=== PATIENT | male | born 1955 | race Caucasian/White ===

== ENCOUNTER 2017-08-18 09:05 | Day surgery (SDC) | payer BC ==
[~2017-08-18 09:05] MED LIST: Lactated Ringers 1,000 ML IV SCH; Sodium Chloride 0.9% 5 ML Syringe FLUSH PRN
[2017-08-18] MEDS ORDERED: Midazolam 1 MG/ML 2 ML SDV ONE (09:25)
[2017-08-18] MEDS ORDERED: fentaNYL 100 MCG/2 ML SDV ONE (09:25)
[2017-08-18] MEDS ORDERED: Propofol 200 MG/20 ML SDV ONE (09:43)
[2017-08-18] MEDS ORDERED: Midazolam 1 MG/ML 2 ML SDV IV ONE (10:25)
[2017-08-18] MEDS ORDERED: fentaNYL 100 MCG/2 ML SDV IV ONE (10:25)
[2017-08-18] MEDS ORDERED: Propofol 200 MG/20 ML SDV IV ONE (10:25)
--- NOTE | 2017-08-18 11:20 | PCM.OPNOTE ---
- General Post-Op/Procedure Note Date of Surgery/Procedure: 08/18/17 Operative Procedure(s): Colonoscopy and polypectomies 3, 1 biopsy Findings: Full colonoscopy was performed. The scope was passed to the ileocecal junction. There are 4 polyps identified one at 45 cm, 25 cm 20 cm and 15 cm. The polyp at 45 cm was large, flat based and covered approximately three-quarter of the lumen of the colon. Full polypectomy was not performed of this polyp. Full polypectomies were performed of the polyps at the 25 cm, 20 cm and 15 cm from the anal margin. Pre Op Diagnosis: Abnormal CT scan showing a possible tumor of the sigmoid colon. Post colonoscopy these findings were confirmed. Large mass was identified at 45 cm occluding approximately 75% of the lumen of the colon. 3 of the polyps were identified and removed. Post-Op Diagnosis: As above. Anesthesia Technique: Moderate Sedation Primary Surgeon: Narendra Field Complications: None Condition: Good Free Text/Narrative:: INFORMED CONSENT: Patient is here today for elective colonoscopy. All aspects of this procedure have been discussed with the patient. All possible complications also, including possibility of perforation, infection, pain, bleeding and unknown complications. In the event of perforation patient may need to have abdominal exploration, colon resection, colostomy and even was discussed. Anesthetic complications were handled by anesthesia department. The patient understands fully well. Patient did not have any further questions for me at the end of my interview. The patient wishes for me to proceed. PREOPERATIVE DIAGNOSIS/INDICATIONS: [Abdominal abdomen CT indicating a possible mass of the sigmoid colon.] POSTOPERATIVE DIAGNOSIS: [] Large mass identified at the junction of the sigmoid and descending colon at 45 cm. 3 other polyps identified at 25 cm 28 cm and 15 cm. INSTRUMENT USED: Olympus videocolonoscope. ASA CLASSIFICATION: [2] ANESTHESIA: Continuous EKG, oximetry and intermittent blood pressure and respiratory monitoring were performed throughout the procedure. IV Versed and Fentanyl were administered. PROCEDURE PERFORMED: Colonoscopy POSITIONS OF PATIENT: Left lateral. RECTUM: One polyp identified at 15 cm and removed using the loop and electrocautery.. SIGMOID COLON: 2 polyps were identified at the 25 and 28 cm. Full polypectomies were performed using loop and electrocautery.. DESCENDING COLON: One polyp was identified at 45 cm at the junction of the descending colon and the sigmoid colon. Only a biopsy was performed as this was a flat-based polyp. May require surgical removal or GI consultation. Multiple photographs were taken to document the position of these polyps. SPLENIC FLEXURE: Normal. TRANSVERSE COLON: Normal. HEPATIC FLEXURE: Normal. ASCENDING COLON: Normal. CECUM: Normal. ILEOCECAL VALVE: Normal. BIOPSY: None. TOLERANCE: Excellent. COMPLICATIONS: None.
== END 2017-08-18 12:20 | disposition home or self-care (01) ==
LOC: KA.SDS 09:05
PROVIDERS: ATTEND Family Medicine
DX: D12.8 Benign neoplasm of rectum (principal); D12.4 Benign neoplasm of descending colon; D12.5 Benign neoplasm of sigmoid colon; F17.200 Nicotine dependence, unspecified, uncomplicated; I73.9 Peripheral vascular disease, unspecified; I65.21 Occlusion and stenosis of right carotid artery
CPT/HCPCS: 45380; 45385; J2250; J2704; J3010; J7120

== ENCOUNTER 2017-10-31 19:22 | Observation (INO) | payer BC ==
[2017-10-31] MEDS ORDERED: Sodium Chloride 0.9% 5 ML Syringe FLUSH PRN ×2 (19:50→21:42)
--- NOTE | 2017-10-31 19:52 | EDM.PDOC ---
ED HPI GENERAL MEDICAL PROBLEM - General Chief Complaint: Cardiovascular Problem Stated Complaint: DIZZY Time Seen by Provider: 10/31/17 19:40 Source of Information: Reports: Patient History Limitations: Reports: No Limitations - History of Present Illness INITIAL COMMENTS - FREE TEXT/NARRATIVE: 62 yo WM presents to ER with complaints of dizziness which began tonight while siting on the couch. Pt states episode lasted for less than 1 minute. Pt denies any chest pain, shortness of breath, nausea/vomiting or recent illness. Pt recently had a cardiac stress test which was abnormal an is awaiting being scheduled for diagnostic cardiac cath. Pt had a colonscopy recently which revealed a large polyp which will require surgical excision after cardiac clearance. Onset: Today Onset Date: 10/31/17 Onset Time: 18:00 Location: Reports: Generalized Severity: Mild Improves with: Reports: None Worsens with: Reports: None Associated Symptoms: Reports: No Other Symptoms - Related Data Allergies Allergy/AdvReac Type Severity Reaction Status Date / Time No Known Drug Allergies Allergy Cannot Verified 10/31/17 19:30 Remember Home Meds: Home Meds Aspirin [Adult Low Dose Aspirin EC] 81 mg PO DAILY 08/13/17 [History] Levothyroxine 25 mcg PO ACBREAKFAST 08/13/17 [History] atorvaSTATin [Lipitor] 20 mg PO BEDTIME 08/13/17 [History] Past Medical History Cardiovascular History: Reports: High Cholesterol, PVD Gastrointestinal History: Reports: Other (See Below) Other Gastrointestinal History: here for colonoscopy due to sigmoid mass Musculoskeletal History: Reports: Fracture Endocrine/Metabolic History: Reports: Hypothyroidism - Infectious Disease History Infectious Disease History: Reports: Chicken Pox, Measles, Mumps Social & Family History - Family History Family Medical History: Noncontributory - Caffeine Use Caffeine Use: Reports: Coffee ED ROS GENERAL - Review of Systems Review Of Systems: See Below Constitutional: Reports: No Symptoms HEENT: Reports: No Symptoms Respiratory: Reports: No Symptoms Cardiovascular: Reports: Lightheadedness Endocrine: Reports: No Symptoms GI/Abdominal: Reports: No Symptoms : Reports: No Symptoms Musculoskeletal: Reports: No Symptoms Skin: Reports: No Symptoms Neurological: Reports: Dizziness Psychiatric: Reports: No Symptoms Hematologic/Lymphatic: Reports: No Symptoms Immunologic: Reports: No Symptoms ED EXAM, DIZZINESS - Physical Exam Exam: See Below Exam Limited By: No Limitations General Appearance: Alert, WD/WN, No Apparent Distress Eye Exam: Bilateral Eye: EOMI, PERRL Nose: Normal Inspection, Normal Mucosa, No Blood Throat/Mouth: Normal Inspection, Normal Lips, Normal Teeth, Normal Gums, Normal Oropharynx, Normal Voice, No Airway Compromise Head Exam: Atraumatic, Normocephalic Neck: Normal Inspection, Supple, Non-Tender, Full Range of Motion Respiratory/Chest: No Respiratory Distress, Lungs Clear, Normal Breath Sounds, No Accessory Muscle Use, Chest Non-Tender Cardiovascular: Normal Peripheral Pulses, Regular Rate, Rhythm, No Edema, No Gallop, No JVD, No Murmur, No Rub GI/Abdominal: Normal Bowel Sounds, Soft, Non-Tender, No Organomegaly, No Distention, No Abnormal Bruit, No Mass Neurological: Alert, Normal Mood/Affect, Normal Dorsiflexion, CN II-XII Intact, Normal Plantar Flexion, Normal Gait, Normal Reflexes, No Motor/Sensory Deficits , Oriented x 3 Back Exam: Normal Inspection, Full Range of Motion, NT Extremities: Normal Inspection, Normal Range of Motion, Non-Tender, No Pedal Edema, Normal Capillary Refill Psychiatric: Normal Affect, Normal Mood Skin Exam: Warm, Dry, Intact, Normal Color, No Rash EKG INTERPRETATION EKG Date: 10/31/17 Time: 19:57 Rhythm: NSR Rate (Beats/Min): 73 [place]: Normal P-Wave: Present QRS: Normal ST-T: Normal QT: Normal Comparison: NA - No Prior EKG Course - Orders/Labs/Meds Orders: Active Orders 24 hr Category Date Time Status Cardiac Monitoring [RC] . DIRECTED Care 10/31/17 19:50 Active EKG Documentation Completion [RC] ASDIRECTED Care 10/31/17 19:51 Active Oxygen Therapy, ED [RC] ASDIRECTED Care 10/31/17 19:50 Active Peripheral IV Care [RC] . DIRECTED Care 10/31/17 19:51 Active Chest 1V Frontal [CR] Stat Exams 10/31/17 19:50 Ordered Sodium Chloride 0.9% [Syrex Flush] Med 10/31/17 19:50 Active 5 ml FLUSH Q8HR PRN Peripheral IV Insertion Adult [OM.PC] Routine Oth 10/31/17 19:50 Ordered EKG 12 Lead [EK] Routine Ther 10/31/17 19:50 Ordered Medication Orders Sodium Chloride (Syrex Flush) 5 ml FLUSH Q8HR PRN PRN Reason: Keep Vein Open Labs: Laboratory Tests 10/31/17 10/31/17 10/31/17 Range/Units 20:35 20:35 20:35 WBC 6.5 (5.0-10.0) 10^3/uL RBC 4.48 L (4.50-6.00) 10^6/uL Hgb 15.0 (13.0-17.0) g/dL Hct 43.5 (40.0-52.0) % MCV 97.2 H (82.0-92.0) fL MCH 33.5 H (27.0-31.0) pg MCHC 34.5 (32.0-36.0) g/dL RDW 12.5 (11.5-14.5) % Plt Count 298 (150-300) 10^3/uL MPV 7.0 L (7.4-10.4) fL Neut % (Auto) 55.2 (50.0-70.0) % Lymph % (Auto) 35.4 (20.0-40.0) % [place] % (Auto) 7.0 (2.0-8.0) % Eos % (Auto) 1.6 (1.0-3.0) % Baso % (Auto) 0.8 (0.0-1.0) % Neut # (Auto) 3.5 (2.5-7.0) 10^3/uL Lymph # (Auto) 2.3 (1.0-4.0) 10^3/uL [place] # (Auto) 0.5 (0.1-0.8) 10^3/uL Eos # (Auto) 0.1 (0.1-0.3) 10^3/uL Baso # (Auto) 0.1 (0.0-0.1) 10^3/uL PT 10.1 (8.9-11.4) SEC INR 1.0 (0.9-1.1) APTT 24.8 (20.8-31.2) SEC Sodium 141 (136-145) mmol/L Potassium 4.5 (3.3-5.3) mmol/L Chloride 104 (98-115) mmol/L Carbon Dioxide 29.6 (21.0-32.0) mmol/L Anion Gap 11.9 (5-15) mmol/L BUN 16 (6-25) mg/dL Creatinine 1.10 (0.51-1.17) mg/dL Est Cr Clr Drug Dosing 62.83 mL/min Estimated GFR (MDRD) > 60 mL/min Glucose 98 mg/dL Calcium 9.0 (8.7-10.3) mg/dL Magnesium (1.8-2.4) mg/dL Total Bilirubin 0.4 (0.2-1.0) mg/dL AST 27 (15-37) U/L ALT 33 (12-78) U/L Alkaline Phosphatase 97 (46-116) IU/L Creatine Kinase 98 (26-276) U/L CK-MB (CK-2) 1.70 (0.00-4.30) ng/mL Troponin I < 0.04 (0.00-0.070) ng/mL Total Protein 7.3 (6.4-8.2) g/dL Albumin 3.34 (3.00-4.80) g/dL 10/31/17 Range/Units 20:35 WBC (5.0-10.0) 10^3/uL RBC (4.50-6.00) 10^6/uL Hgb (13.0-17.0) g/dL Hct (40.0-52.0) % MCV (82.0-92.0) fL MCH (27.0-31.0) pg MCHC (32.0-36.0) g/dL RDW (11.5-14.5) % Plt Count (150-300) 10^3/uL MPV (7.4-10.4) fL Neut % (Auto) (50.0-70.0) % Lymph % (Auto) (20.0-40.0) % [place] % (Auto) (2.0-8.0) % Eos % (Auto) (1.0-3.0) % Baso % (Auto) (0.0-1.0) % Neut # (Auto) (2.5-7.0) 10^3/uL Lymph # (Auto) (1.0-4.0) 10^3/uL [place] # (Auto) (0.1-0.8) 10^3/uL Eos # (Auto) (0.1-0.3) 10^3/uL Baso # (Auto) (0.0-0.1) 10^3/uL PT (8.9-11.4) SEC INR (0.9-1.1) APTT (20.8-31.2) SEC Sodium (136-145) mmol/L Potassium (3.3-5.3) mmol/L Chloride (98-115) mmol/L Carbon Dioxide (21.0-32.0) mmol/L Anion Gap (5-15) mmol/L BUN (6-25) mg/dL Creatinine (0.51-1.17) mg/dL Est Cr Clr Drug Dosing mL/min Estimated GFR (MDRD) mL/min Glucose mg/dL Calcium (8.7-10.3) mg/dL Magnesium 2.0 (1.8-2.4) mg/dL Total Bilirubin (0.2-1.0) mg/dL AST (15-37) U/L ALT (12-78) U/L Alkaline Phosphatase (46-116) IU/L Creatine Kinase (26-276) U/L CK-MB (CK-2) (0.00-4.30) ng/mL Troponin I (0.00-0.070) ng/mL Total Protein (6.4-8.2) g/dL Albumin (3.00-4.80) g/dL Meds: Medications Generic Name Dose Route Start Last Admin Trade Name Freq PRN Reason Stop Dose Admin Sodium Chloride 5 ml 10/31/17 19:50 Syrex Flush FLUSH Q8HR PRN Keep Vein Open - Radiology Interpretation Free Text/Narrative:: CXR- NAD Departure - Departure Time of Disposition: 21:37 Disposition: Refer to Observation Condition: Fair Clinical Impression: Dizziness - Discharge Information Referrals: Ayana Field MD [Primary Care Provider] - Forms: ED Department Discharge - My Orders Last 24 Hours: My Active Orders 10/31/17 19:50 Cardiac Monitoring [RC] . DIRECTED Oxygen Therapy, ED [RC] ASDIRECTED Chest 1V Frontal [CR] Stat Sodium Chloride 0.9% [Syrex Flush] 5 ml FLUSH Q8HR PRN Peripheral IV Insertion Adult [OM.PC] Routine EKG 12 Lead [EK] Routine 10/31/17 19:51 EKG Documentation Completion [RC] ASDIRECTED Peripheral IV Care [RC] . DIRECTED - Assessment/Plan Last 24 Hours: My Active Orders 10/31/17 19:50 Cardiac Monitoring [RC] . DIRECTED Oxygen Therapy, ED [RC] ASDIRECTED Chest 1V Frontal [CR] Stat Sodium Chloride 0.9% [Syrex Flush] 5 ml FLUSH Q8HR PRN Peripheral IV Insertion Adult [OM.PC] Routine EKG 12 Lead [EK] Routine 10/31/17 19:51 EKG Documentation Completion [RC] ASDIRECTED Peripheral IV Care [RC] . DIRECTED Assessment:: 1. Dizziness 2. Recent abnormal stress test Plan: admit for observation- Dr Joanne Wade serial trop I Q6 supportive care schedule for diagnostic cath as outpatient
[2017-10-31 21:14] LABS: ANION GAP 11.9 mmol/L (5-15); CHLORIDE,CL 104 mmol/L (98-115); SODIUM,NA 141 mmol/L (136-145)
[2017-11-01] MEDS: atorvaSTATin 10 MG Tab PO SCH (00:15)
[2017-11-01] MEDS ORDERED: EPINEPHrine 1:10,000 1 MG/10 ML Syringe IVPUSH PRN (06:48)
[2017-11-01] MEDS ORDERED: Lidocaine 2% 100 MG/5 ML Syringe IVPUSH PRN (06:48)
[2017-11-01] MEDS ORDERED: Atropine 0.1 MG/ML 10 ML Syringe IVPUSH PRN (06:48)
[2017-11-01] MEDS ORDERED: Nitroglycerin 0.4 MG Tab.SL SL PRN (06:48)
[2017-11-01] MEDS ORDERED: Levothyroxine 25 MCG Tab PO SCH (07:30)
[2017-11-01] MEDS: Aspirin 81 MG Tab.EC PO SCH (08:44)
[2017-11-01] MEDS: Levothyroxine 50 MCG Tab PO SCH (08:44)
[2017-11-01] MEDS ORDERED: Aspirin 325 MG Tab.EC PO SCH (09:00)
--- NOTE | 2017-11-01 09:08 | PCM.HP ---
H&P History of Present Illness - General Date of Service: 11/01/17 Admit Problem/Dx: Admission Diagnosis/Problem Admission Diagnosis/Problem Dizziness - History of Present Illness Initial Comments - Free Text/Narative: 62-year-old obese gentleman was admitted into observation overnight through the ED when he had at first episode lasting less than 1 minute of dizziness while sitting on the couch at home. Patient does have significant cardiac risk studies including peripheral vascular disease, smoking, coronary artery disease , carotid artery stenosis, and recently had failed the Lexiscan Cardiolite stress test currently awaiting on further diagnostic's at [facility]. Patient had no chest pain shortness of breath nausea vomiting or diarrhea however he does have a large: polyp which was noted incidentally. He does have peripheral vascular disease with intermittent claudication. He does walk approximately 2 miles a day however he will get claudication about three quarters of a mile into his walk. Recent Lexiscan demonstrated the patient to have Large area of infarction involving the inferolateral wall however no ischemia, Normal size left ventricle with the left ventricular ejection fraction at the lower limits of normal of approximately 50%. He was admitted for rule out myocardial infarction - Related Data Allergies/Adverse Reactions: Allergies Allergy/AdvReac Type Severity Reaction Status Date / Time No Known Drug Allergies Allergy Cannot Verified 10/31/17 19:30 Remember Home Medications: Home Meds Aspirin [Adult Low Dose Aspirin EC] 81 mg PO DAILY 08/13/17 [History] atorvaSTATin [Lipitor] 20 mg PO BEDTIME 08/13/17 [History] Levothyroxine 75 mcg PO ACBREAKFAST #60 tab 11/01/17 [Rx] Past Medical History HEENT History: Reports: Other (See Below) Cardiovascular History: Reports: High Cholesterol, PVD Other Cardiovascular History: Pt reports that he had a stress test last week and found out on Wednesday that there was an "abnormalty" on his final report, pt awaiting follow up care appt with cardiology. Respiratory History: Reports: Other (See Below) Other Respiratory History: Reports trying to quit smoking, down to 2-3 cigarettes per day. Reports smoking "all his life." Gastrointestinal History: Reports: Other (See Below) Other Gastrointestinal History: here for colonoscopy due to sigmoid mass Musculoskeletal History: Reports: Fracture Endocrine/Metabolic History: Reports: Hypothyroidism - Infectious Disease History Infectious Disease History: Reports: Chicken Pox, Measles, Mumps - Past Surgical History HEENT Surgical History: Reports: Other (See Below) Other HEENT Surgeries/Procedures: Pt reports having scalp cyst removed in July 2017. Cardiovascular Surgical History: Reports: None GI Surgical History: Reports: Colonoscopy Social & Family History - Family History Cardiac: Reports: CAD, Heart Murmur Respiratory: Reports: Asthma GI: Reports: None : Reports: None OBGYN: Reports: None Musculoskeletal: Reports: None Neurological: Reports: None Psychiatric: Reports: None Endocrine/Metabolic: Reports: Diabetes, type II - Tobacco Use Smoking Status *Q: Current Every Day Smoker Years of Tobacco use: 45 Packs/Tins Daily: 0.1 Used Tobacco, but Quit: No - Caffeine Use Caffeine Use: Reports: Coffee H&P Review of Systems - Review of Systems: Review Of Systems: See Below General: Reports: No Symptoms HEENT: Reports: No Symptoms Pulmonary: Reports: No Symptoms Cardiovascular: Reports: No Symptoms Gastrointestinal: Reports: No Symptoms Genitourinary: Reports: No Symptoms Musculoskeletal: Reports: No Symptoms Skin: Reports: No Symptoms Psychiatric: Reports: No Symptoms Neurological: Reports: No Symptoms Hematologic/Lymphatic: Reports: No Symptoms Immunologic: Reports: No Symptoms Exam - Exam Exam: See Below - Vital Signs Vital Signs: Last Vital Signs Temp 97.2 F 11/01/17 06:52 Pulse 72 11/01/17 06:52 Resp 16 11/01/17 06:52 BP 113/74 11/01/17 06:52 Pulse Ox 94 L 11/01/17 06:52 Weight: 239 lb 6 oz - Exam General: Alert, Oriented, 4 HEENT: PERRLA, Hearing Intact, Mucosa Moist & [place], Nares Patent, Normal Nasal Septum, Posterior Pharynx Clear, Conjunctiva Clear, EOMI, EACs Clear, TMs Clear Neck: Supple, Trachea Midline, 2 Lungs: Clear to Auscultation, Normal Respiratory Effort Cardiovascular: Regular Rate, Regular Rhythm GI/Abdominal Exam: Normal Bowel Sounds, Soft, Non-Tender, No Distention (Male) Exam: Deferred Rectal (Males) Exam: Deferred Back Exam: No: CVA Tenderness (L) Extremities: No Pedal Edema Peripheral Pulses: 2+: Radial (R), Femoral (L) Skin: Warm, Dry, Intact Neurological: Cranial Nerves Intact, Reflexes Equal Bilateral Neuro Extensive - Mental Status: Alert, Oriented x3, Normal Mood/Affect, Normal Cognition Neuro Extensive - Motor, Sensory, Reflexes: CN II-XII Intact, Normal Gait, Normal Reflexes Psychiatric: Alert, Normal Affect, Normal Mood - Patient Data Lab Results Last 24 hrs: Laboratory Results - last 24 hr 10/31/17 10/31/17 10/31/17 Range/Units 20:35 20:35 20:35 WBC 6.5 (5.0-10.0) 10^3/uL RBC 4.48 L (4.50-6.00) 10^6/uL Hgb 15.0 (13.0-17.0) g/dL Hct 43.5 (40.0-52.0) % MCV 97.2 H (82.0-92.0) fL MCH 33.5 H (27.0-31.0) pg MCHC 34.5 (32.0-36.0) g/dL RDW 12.5 (11.5-14.5) % Plt Count 298 (150-300) 10^3/uL MPV 7.0 L (7.4-10.4) fL Neut % (Auto) 55.2 (50.0-70.0) % Lymph % (Auto) 35.4 (20.0-40.0) % [place] % (Auto) 7.0 (2.0-8.0) % Eos % (Auto) 1.6 (1.0-3.0) % Baso % (Auto) 0.8 (0.0-1.0) % Neut # (Auto) 3.5 (2.5-7.0) 10^3/uL Lymph # (Auto) 2.3 (1.0-4.0) 10^3/uL [place] # (Auto) 0.5 (0.1-0.8) 10^3/uL Eos # (Auto) 0.1 (0.1-0.3) 10^3/uL Baso # (Auto) 0.1 (0.0-0.1) 10^3/uL PT 10.1 (8.9-11.4) SEC INR 1.0 (0.9-1.1) APTT 24.8 (20.8-31.2) SEC Sodium 141 (136-145) mmol/L Potassium 4.5 (3.3-5.3) mmol/L Chloride 104 (98-115) mmol/L Carbon Dioxide 29.6 (21.0-32.0) mmol/L Anion Gap 11.9 (5-15) mmol/L BUN 16 (6-25) mg/dL Creatinine 1.10 (0.51-1.17) mg/dL Est Cr Clr Drug Dosing 62.83 mL/min Estimated GFR (MDRD) > 60 mL/min Glucose 98 mg/dL Calcium 9.0 (8.7-10.3) mg/dL Magnesium (1.8-2.4) mg/dL Total Bilirubin 0.4 (0.2-1.0) mg/dL AST 27 (15-37) U/L ALT 33 (12-78) U/L Alkaline Phosphatase 97 (46-116) IU/L Creatine Kinase 98 (26-276) U/L CK-MB (CK-2) 1.70 (0.00-4.30) ng/mL Troponin I < 0.04 (0.00-0.070) ng/mL Total Protein 7.3 (6.4-8.2) g/dL Albumin 3.34 (3.00-4.80) g/dL TSH, Ultra Sensitive (0.340-4.820) uIU/mL 10/31/17 11/01/17 11/01/17 Range/Units 20:35 02:10 02:10 WBC (5.0-10.0) 10^3/uL RBC (4.50-6.00) 10^6/uL Hgb (13.0-17.0) g/dL Hct (40.0-52.0) % MCV (82.0-92.0) fL MCH (27.0-31.0) pg MCHC (32.0-36.0) g/dL RDW (11.5-14.5) % Plt Count (150-300) 10^3/uL MPV (7.4-10.4) fL Neut % (Auto) (50.0-70.0) % Lymph % (Auto) (20.0-40.0) % [place] % (Auto) (2.0-8.0) % Eos % (Auto) (1.0-3.0) % Baso % (Auto) (0.0-1.0) % Neut # (Auto) (2.5-7.0) 10^3/uL Lymph # (Auto) (1.0-4.0) 10^3/uL [place] # (Auto) (0.1-0.8) 10^3/uL Eos # (Auto) (0.1-0.3) 10^3/uL Baso # (Auto) (0.0-0.1) 10^3/uL PT (8.9-11.4) SEC INR (0.9-1.1) APTT (20.8-31.2) SEC Sodium (136-145) mmol/L Potassium (3.3-5.3) mmol/L Chloride (98-115) mmol/L Carbon Dioxide (21.0-32.0) mmol/L Anion Gap (5-15) mmol/L BUN (6-25) mg/dL Creatinine (0.51-1.17) mg/dL Est Cr Clr Drug Dosing mL/min Estimated GFR (MDRD) mL/min Glucose mg/dL Calcium (8.7-10.3) mg/dL Magnesium 2.0 (1.8-2.4) mg/dL Total Bilirubin (0.2-1.0) mg/dL AST (15-37) U/L ALT (12-78) U/L Alkaline Phosphatase (46-116) IU/L Creatine Kinase (26-276) U/L CK-MB (CK-2) (0.00-4.30) ng/mL Troponin I 0.05 (0.00-0.070) ng/mL Total Protein (6.4-8.2) g/dL Albumin (3.00-4.80) g/dL TSH, Ultra Sensitive 6.970 H (0.340-4.820) uIU/mL 11/01/17 Range/Units 07:15 WBC (5.0-10.0) 10^3/uL RBC (4.50-6.00) 10^6/uL Hgb (13.0-17.0) g/dL Hct (40.0-52.0) % MCV (82.0-92.0) fL MCH (27.0-31.0) pg MCHC (32.0-36.0) g/dL RDW (11.5-14.5) % Plt Count (150-300) 10^3/uL MPV (7.4-10.4) fL Neut % (Auto) (50.0-70.0) % Lymph % (Auto) (20.0-40.0) % [place] % (Auto) (2.0-8.0) % Eos % (Auto) (1.0-3.0) % Baso % (Auto) (0.0-1.0) % Neut # (Auto) (2.5-7.0) 10^3/uL Lymph # (Auto) (1.0-4.0) 10^3/uL [place] # (Auto) (0.1-0.8) 10^3/uL Eos # (Auto) (0.1-0.3) 10^3/uL Baso # (Auto) (0.0-0.1) 10^3/uL PT (8.9-11.4) SEC INR (0.9-1.1) APTT (20.8-31.2) SEC Sodium (136-145) mmol/L Potassium (3.3-5.3) mmol/L Chloride (98-115) mmol/L Carbon Dioxide (21.0-32.0) mmol/L Anion Gap (5-15) mmol/L BUN (6-25) mg/dL Creatinine (0.51-1.17) mg/dL Est Cr Clr Drug Dosing mL/min Estimated GFR (MDRD) mL/min Glucose mg/dL Calcium (8.7-10.3) mg/dL Magnesium (1.8-2.4) mg/dL Total Bilirubin (0.2-1.0) mg/dL AST (15-37) U/L ALT (12-78) U/L Alkaline Phosphatase (46-116) IU/L Creatine Kinase (26-276) U/L CK-MB (CK-2) (0.00-4.30) ng/mL Troponin I < 0.04 (0.00-0.070) ng/mL Total Protein (6.4-8.2) g/dL Albumin (3.00-4.80) g/dL TSH, Ultra Sensitive (0.340-4.820) uIU/mL Result Diagrams: 10/31/17 20:35 10/31/17 20:35 Problem List Initiated/Reviewed/Updated: Yes Orders Last 24hrs: Active Orders 24 hr Category Date Time Status Patient Status [ADT] Routine ADT 10/31/17 21:42 Ordered Bedrest Bathroom Privileges [RC] DAILY Care 10/31/17 21:42 Active Cardiac Monitoring [RC] . DIRECTED Care 10/31/17 19:50 Inactive Cardiac Monitoring [RC] 0300,0700,1100,1500,1900,2300 Care 10/31/17 21:43 Active EKG Documentation Completion [RC] ASDIRECTED Care 10/31/17 19:51 Inactive Oxygen Therapy [RC] .PRN Care 10/31/17 21:42 Active Vital Signs [RC] 0300,0700,1100,1500,1900,2300 Care 10/31/17 21:42 Active 2 Gram Sodium Diet [DIET] Diet 11/01/17 Breakfast Active Chest 1V Frontal [CR] Stat Exams 10/31/17 19:50 Stop Req FOLATE [REF] Routine Lab 10/31/17 22:48 Received VITAMIN B12 [REF] Routine Lab 10/31/17 22:48 Received Aspirin [Halfprin] Med 11/01/17 09:00 Active 81 mg PO DAILY Atropine [Atropine 0.1 MG/ML] Med 11/01/17 06:48 Active 0 mg IVPUSH ASDIRECTED PRN EPINEPHrine [EPINEPHrine 1:10,000] Med 11/01/17 06:48 Active 1 mg IVPUSH ASDIRECTED PRN Levothyroxine [Synthroid] Med 11/01/17 07:30 Active 50 mcg PO ACBREAKFAST Lidocaine 2% [Xylocaine 2%] Med 11/01/17 06:48 Active 0 mg IVPUSH ASDIRECTED PRN Nitroglycerin [Nitrostat] Med 11/01/17 06:48 Active 0.4 mg SL ASDIRECTED PRN Sodium Chloride 0.9% [Syrex Flush] Med 10/31/17 21:42 Active 5 ml FLUSH Q8HR PRN atorvaSTATin [Lipitor] Med 10/31/17 21:00 Active 20 mg PO BEDTIME Peripheral IV Insertion Adult [OM.PC] Routine Oth 10/31/17 21:42 Ordered Resuscitation Status Routine Resus Stat 10/31/17 21:42 Ordered EKG 12 Lead [EK] Routine Ther 10/31/17 19:50 Stop Req Medication Orders Aspirin (Halfprin) 81 mg PO DAILY [facility] Last Admin: 11/01/17 08:44 Dose: Not Given Atorvastatin Calcium (Lipitor) 20 mg PO BEDTIME [facility] Last Admin: 11/01/17 00:15 Dose: Atropine Sulfate (Atropine 0.1 Mg/Ml) 0 mg IVPUSH ASDIRECTED PRN PRN Reason: Heart Epinephrine HCl (Epinephrine 1:10,000) 1 mg IVPUSH ASDIRECTED PRN PRN Reason: Heart Levothyroxine Sodium (Synthroid) 50 mcg PO ACBREAKFAST [facility] Last Admin: 11/01/17 08:44 Dose: Not Given Lidocaine HCl (Xylocaine 2%) 0 mg IVPUSH ASDIRECTED PRN PRN Reason: Heart Nitroglycerin (Nitrostat) 0.4 mg SL ASDIRECTED PRN PRN Reason: Heart Sodium Chloride (Syrex Flush) 5 ml FLUSH Q8HR PRN PRN Reason: Keep Vein Open Assessment/Plan Comment:: HISTORY OF PRESENT ILLNESS 62-year-old obese gentleman was admitted into observation overnight through the ED when he had at first episode lasting less than 1 minute of dizziness while sitting on the couch at home. Patient does have significant cardiac risk studies including peripheral vascular disease, smoking, coronary artery disease , carotid artery stenosis, and recently had failed the Lexiscan Cardiolite stress test currently awaiting on further diagnostic's at [facility]. Patient had no chest pain shortness of breath nausea vomiting or diarrhea however he does have a large: polyp which was noted incidentally. He does have peripheral vascular disease with intermittent claudication. He does walk approximately 2 miles a day however he will get claudication about three quarters of a mile into his walk. Recent Lexiscan demonstrated the patient to have Large area of infarction involving the inferolateral wall however no ischemia, Normal size left ventricle with the left ventricular ejection fraction at the lower limits of normal of approximately 50%. He was admitted for rule out myocardial infarction Pertinent ED workup Chest x-ray normal Troponin initially normal Electrolyte normal Mild hypertension early on admission EKG normal sinus rhythm no ST morphology Impression Rule out myocardial infarction Coronary artery disease Dizziness, likely due to carotid stenosis Hypothyroidism Obesity Tobacco dependency PVD HLD colon Polyp Disposition Patient will be discharged from observation, follow-up with Dr. Piña this morning [facility], follow with cardiology Increased levothyroxine sodium 75 g per day Continue aspirin Lipids added on to hospital labs Report any further dizziness or chest pain, stay well-hydrated
--- NOTE | 2017-11-01 11:49 | DISCH ---
FINAL DIAGNOSES: 1. Dizziness, questionable etiology, likely coronary artery disease, plaque buildup, rule out myocardial infarction, this has been ruled out. 2. Tobacco abuse. 3. Peripheral vascular disease with claudication. 4. Hyperlipidemia. 5. Hypothyroidism. 6. Obesity, BMI 32. 7. Tubulovillous adenoma with large polyp, recently noted. 8. Failed Cardiolite stress test. HISTORY: This is a 62-year-old obese male. He came into the ED last night, complains of dizziness. The patient stated he was sitting on the couch, non- exerting. He had some mild lightheadedness and dizziness lasting approximately less than 1 minute. He denied any chest pain. No shortness of breath. No nausea, vomiting, or recent illness. However, the patient does have significant cardiovascular disease with peripheral vascular disease with a recent failed cardiac stress test. He is waiting for diagnostic cardiac cath. He recently had a colonoscopy, which revealed a large polyp which will require surgical excision. However, he did fail a cardiac clearance recently, and he is waiting for [facility] for ongoing further diagnostics. His ED workup included white count of 6.5, normal hemoglobin and hematocrit. PT 1.0. Normal electrolytes. AST, ALT, and alkaline phosphatase are normal. Troponin times three normal. TSH 6.9. Blood pressure was normal. Weight 240 pounds, O2 sats 94% on room air. EKG; normal sinus rhythm, heart rate 70, normal P waves, no ST elevation, QT was normal compared to previous EKG in September 2017 showed PVCs with nonspecific T-wave abnormality. Recent nuclear stress test demonstrated large area of infarction involving the inferolateral wall. No ischemia. Lower than normal ejection fraction at 50%. Chest x-ray, no acute process. The patient is an ongoing smoker. He is down to approximately one pack per week. Has attempted to reduce his saturated fat in his diet. He did add fish oil to his daily regimen. He recently had TSH. His thyroid medication was adjusted, increased from 25 to 50 approximately two months ago. He does do brisk walking. However, he will get claudication about three-quater of mile. He does about 2 miles per day. HOSPITAL COURSE: Hospital course is quite uneventful. He slept through the night. He was on telemetry. Nurses did not report any aberrancy. No ST changes. Troponin was normal. He had no chest pain, no shortness of breath. No further episodes of dizziness. He had adequate intake and output. His vital signs remain good and stable. He was afebrile. Blood pressure on discharge was 113/74, pulse oximetry 94% on room air, and respiratory rate 16. PHYSICAL EXAMINATION: LUNGS: Clear to auscultation. CV: Regular rate and rhythm with PMI of left sternal border, second mid midclavicular line. EXTREMITIES: No edema in his lower extremities. ABDOMEN: Good bowel tones. Nontender. MEDICATION ADJUSTMENTS AND CHANGES: Increase levothyroxine from 50 mcg to 75 mcg (adjusted upon discharge). Continue atorvastatin current dose until lipids are completed at [facility], drawn on October 31. Continue with low-dose aspirin. Continue with fish oil. DISPOSITION: The patient desires to be discharged from the hospital. He is in stable condition. Vital signs are stable. He is to have a followup appointment this morning with Dr. Piña at [facility]. He also is to follow up with Cardiology as he does have pending cardiac catheterization. No strenuous exercise today. Rest and relax today. Long conversation regarding smoking and deleterious affects to his health. He is in contemplation stage of quitting. DISCHARGE INSTRUCTIONS: Include discontinue smoking, stay well-hydrated. Report any further dizziness. Avoid over exertion. Avoid hot sun for now. Followup appointment at [facility]. Report to the ED immediately for any chest pain. /[id number]/MODL
== END 2017-11-01 09:53 | disposition home or self-care (01) ==
LOC: KA.ED 19:22 → KA.MS 21:42 → UNDODISOB 11-01 09:53
PROVIDERS: ADMIT Physician Assistant Medical; ATTEND Family Medicine
DX: R42 Dizziness and giddiness (principal); I73.9 Peripheral vascular disease, unspecified; E78.00 Pure hypercholesterolemia, unspecified; E78.5 Hyperlipidemia, unspecified; E03.9 Hypothyroidism, unspecified; E66.9 Obesity, unspecified; Z68.32 Body mass index [BMI] 32.0-32.9, adult; K63.5 Polyp of colon; F17.210 Nicotine dependence, cigarettes, uncomplicated; Z79.82 Long term (current) use of aspirin; Z79.899 Other long term (current) drug therapy
CPT/HCPCS: 36415; 71045; 80053; 80061; 82550; 82553; 82607; 82746; 83735; 84443; 84484; 85025; 85610; 85730; 93005; 99285; G0378

== ENCOUNTER 2018-06-19 02:00 | Emergency (ER) | payer OTHER | END 2018-06-19 04:30 | LOC: KA.ED 02:00 | DX: K56.41 Fecal impaction (principal) | CPT/HCPCS: 99283 ==

== ENCOUNTER 2018-11-14 09:54 | Day surgery (SDC) | payer OTHER ==
[2018-11-14] MEDS ORDERED: Propofol 200 MG/20 ML SDV IV ONE (09:55)
[2018-11-14] MEDS ORDERED: Midazolam 1 MG/ML 2 ML SDV IV ONE (09:55)
[2018-11-14] MEDS ORDERED: Sodium Chloride 0.9% 10 ML Syringe FLUSH PRN (10:00)
[2018-11-14] MEDS ORDERED: Lactated Ringers 1,000 ML IV SCH (10:00)
[2018-11-14] MEDS ORDERED: Propofol 200 MG/20 ML SDV ONE (11:23)
[2018-11-14] MEDS ORDERED: Midazolam 1 MG/ML 2 ML SDV ONE (11:23)
--- NOTE | 2018-11-14 12:41 | PCM.OPNOTE ---
- General Post-Op/Procedure Note Date of Surgery/Procedure: 11/14/18 Operative Procedure(s): Colonoscopy Anesthesia Technique: MAC Primary Surgeon: Narendra Field Complications: None Condition: Good Free Text/Narrative:: INFORMED CONSENT: Patient is here today for elective colonoscopy. All aspects of this procedure have been discussed with the patient. All possible complications also, including possibility of perforation, infection, pain, bleeding and unknown complications. In the event of perforation patient may need to have abdominal exploration, colon resection, colostomy and even was discussed. Anesthetic complications were handled by anesthesia department. The patient understands fully well. Patient did not have any further questions for me at the end of my interview. The patient wishes for me to proceed. PREOPERATIVE DIAGNOSIS/INDICATIONS: [Status post sigmoid colon resection for carcinoma:] POSTOPERATIVE DIAGNOSIS: [Normal colonoscopy no evidence of cancer recurrence.] INSTRUMENT USED: Occasion videocolonoscope. ASA CLASSIFICATION: [2] ANESTHESIA: Continuous EKG, oximetry and intermittent blood pressure and respiratory monitoring were performed throughout the procedure. IV Versed and Fentanyl were administered. PROCEDURE PERFORMED: Colonoscopy POSITIONS OF PATIENT: Left lateral. RECTUM: Normal. SIGMOID COLON: Absent. DESCENDING COLON: Normal. SPLENIC FLEXURE: Normal. TRANSVERSE COLON: Normal. HEPATIC FLEXURE: Normal. ASCENDING COLON: Normal. CECUM: Normal. ILEOCECAL VALVE: Normal. BIOPSY: None. TOLERANCE: Excellent. COMPLICATIONS: None. Status post sigmoid colon resection otherwise normal colonoscopy.
== END 2018-11-14 13:52 | disposition home or self-care (01) ==
LOC: KA.SDS 09:54
PROVIDERS: ATTEND Family Medicine
DX: Z12.11 Encounter for screening for malignant neoplasm of colon (principal); I25.10 Atherosclerotic heart disease of native coronary artery without angina pectoris; I49.3 Ventricular premature depolarization; I73.9 Peripheral vascular disease, unspecified; I25.2 Old myocardial infarction; E03.9 Hypothyroidism, unspecified; E78.5 Hyperlipidemia, unspecified; E53.8 Deficiency of other specified B group vitamins; I65.23 Occlusion and stenosis of bilateral carotid arteries; E66.3 Overweight; F17.210 Nicotine dependence, cigarettes, uncomplicated; Z90.49 Acquired absence of other specified parts of digestive tract; Z85.038 Personal history of other malignant neoplasm of large intestine; Z68.26 Body mass index [BMI] 26.0-26.9, adult; Z79.82 Long term (current) use of aspirin; Z79.899 Other long term (current) drug therapy
CPT/HCPCS: 45378; J2250; J2704

== ENCOUNTER 2021-11-10 08:23 | Day surgery (SDC) | payer MEDICARE, OTHER ==
[2021-11-10] MEDS ORDERED: Lactated Ringers 1,000 ML IV SCH (08:30)
[2021-11-10] MEDS ORDERED: Sodium Chloride 0.9% 10 ML Syringe FLUSH PRN (08:30)
[2021-11-10] MEDS ORDERED: Albuterol 0.083% 2.5 MG/3 ML Neb Soln NEB ONE (09:19)
[2021-11-10] MEDS ORDERED: Midazolam 1 MG/ML 2 ML SDV ONE (09:47)
[2021-11-10] MEDS ORDERED: Propofol 200 MG/20 ML SDV ONE (09:47)
== END 2021-11-10 11:30 | disposition home or self-care (01) ==
LOC: KA.SDS 08:23
PROVIDERS: ATTEND Family Medicine
DX: Z12.11 Encounter for screening for malignant neoplasm of colon (principal); I25.10 Atherosclerotic heart disease of native coronary artery without angina pectoris; I50.22 Chronic systolic (congestive) heart failure; I73.9 Peripheral vascular disease, unspecified; I49.3 Ventricular premature depolarization; E03.9 Hypothyroidism, unspecified; E66.9 Obesity, unspecified; E53.8 Deficiency of other specified B group vitamins; D35.02 Benign neoplasm of left adrenal gland; F17.210 Nicotine dependence, cigarettes, uncomplicated; E78.5 Hyperlipidemia, unspecified; Z79.890 Hormone replacement therapy; Z79.82 Long term (current) use of aspirin; Z79.899 Other long term (current) drug therapy; Z79.02 Long term (current) use of antithrombotics/antiplatelets; Z85.038 Personal history of other malignant neoplasm of large intestine; Z90.49 Acquired absence of other specified parts of digestive tract; Z98.890 Other specified postprocedural states; Z68.33 Body mass index [BMI] 33.0-33.9, adult
CPT/HCPCS: 00812; J2250; J2704; J7120; J7613-GY

== ENCOUNTER 2024-11-09 10:34 | Emergency (ER) | payer MEDICARE, OTHER ==
[2024-11-09] MEDS ORDERED: Sodium Chloride 0.9% 10 ML Syringe FLUSH PRN (10:46)
[2024-11-09 11:09] LABS: BASOPHILS ABSOLUTE AUTO 0.05 10^3/uL (0.00-0.10); BASOPHILS PERCENT AUTO 0.8 % (0.0-1.0); EOSINOPHILS ABSOLUTE AUTO 0.16 10^3/uL (0.10-0.30); EOSINOPHILS PERCENT AUTO 2.5 % (1.0-3.0); IMMATURE GRAN ABSOLUTE AUTO 0.01 10^3/uL (0.00-0.04); IMMATURE GRAN PERCENT AUTO 0.2 % (0.0-0.4); LYMPHOCYTES ABSOLUTE AUTO 1.69 10^3/uL (1.00-4.00); LYMPHOCYTES PERCENT AUTO 26.6 % (20.0-40.0); MEAN PLATELET VOLUME 9.4 fL (7.4-10.4); MONOCYTES ABSOLUTE AUTO 0.49 10^3/uL (0.10-0.80); MONOCYTES PERCENT AUTO 7.7 % (2.0-8.0); NEUTROPHILS ABSOLUTE AUTO 3.96 10^3/uL (2.50-7.00); NEUTROPHILS PERCENT AUTO 62.2 % (50.0-70.0); PLATELET COUNT,PLT 139 10^3/uL (150-400); RED BLOOD CELL COUNT 4.51 10^6/uL (4.50-6.00); RED CELL DISTRIBUTION WIDTH 12.6 % (11.5-14.5); WHITE BLOOD CELL COUNT,WBC 6.36 10^3/uL (5.00-10.00)
[2024-11-09 11:26] LABS: B-TYPE NATRIURETIC PEPTIDE,BNP 110 pg/mL (0-100)
[2024-11-09 11:29] LABS: ALANINE AMINOTRANSFERASE,ALT 28 U/L (14-63); ASPARTATE AMNIOTRANSFERASE,AST 38 U/L (15-37); BILIRUBIN TOTAL 0.4 mg/dL (0.2-1.0); BLOOD UREA NITROGEN,BUN 20 mg/dL (7-18); CARBON DIOXIDE,CO2 28.1 mmol/L (21.0-32.0); CHLORIDE,CL 102 mmol/L (98-107); CREATININE 1.42 mg/dL (0.51-1.17); EST CRCL DRUG DOSING (CG) 55.49 mL/min; ESTIMATED GFR 53 mL/min (>=60); GLUCOSE RANDOM 94 mg/dL (70-140); POTASSIUM,K 4.3 mmol/L (3.5-5.1); PROTEIN TOTAL,TP 6.8 g/dL (6.4-8.2); SODIUM,NA 139 mmol/L (136-145)
[2024-11-09 12:30] LABS: APPEARANCE,URINE CLEAR (CLEAR); GLUCOSE,URINE NEGATIVE (NEGATIVE); OCCULT BLOOD,URINE SMALL (NEGATIVE)
[2024-11-09 12:44] LABS: EPITHELIAL CELLS,URINE FEW /LPF
== END 2024-11-09 12:52 | disposition home or self-care (01) ==
LOC: KA.ED 10:34
DX: E86.0 Dehydration (principal); N18.2 Chronic kidney disease, stage 2 (mild); Z79.82 Long term (current) use of aspirin; Z79.890 Hormone replacement therapy; E78.00 Pure hypercholesterolemia, unspecified; E03.9 Hypothyroidism, unspecified
CPT/HCPCS: 36415; 71045; 80053; 81001; 83605; 83880; 84484; 85025; 86140; 96360; 99284-25; J7030